=== PATIENT | male | born 1970 | race African-American/Black ===

== ENCOUNTER 2018-07-02 10:09 | Inpatient (IN) | payer OTHER ==
[2018-07-02 11:37] VITALS: BMI 24.5
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
[2018-07-02] MEDS ORDERED: ALBUTEROL SO4 8 GM HFA INHALER IH PRN (13:47)
[2018-07-02] MEDS ORDERED: MAGNESIUM HYDROX 2400MG/30ML ORAL SUSPENSION 30 ML CUP PO PRN (13:49)
[2018-07-02] MEDS ORDERED: P-EPHED 60MG/TRIPROLIDI 2.5MG TABLET PO PRN (13:49)
[2018-07-02] MEDS ORDERED: MAGNESIUM CITRATE 300 ML BOTTLE PO PRN (13:49)
[2018-07-02] MEDS ORDERED: MENTHOL/PHENOL 1 EACH UD MM PRN (13:49)
[2018-07-02] MEDS ORDERED: LOPERAMIDE HCL 2 MG CAPSULE PO PRN (13:49)
[2018-07-02] MEDS ORDERED: NICOTINE POLACRILEX 2 MG GUM BC PRN (13:49)
[2018-07-02] MEDS ORDERED: guaiFENesin/D-METHORPHAN HB 10 ML UNIT-DOSE CUPS PO PRN (13:49)
[2018-07-02] MEDS ORDERED: MAG HYDROX/AL HYDROX/SIMETH 30 ML UNIT-DOSE CUP PO PRN (13:49)
[2018-07-02] MEDS ORDERED: ACETAMINOPHEN 325 MG TABLET (FP) PO PRN (13:49)
--- NOTE | 2018-07-02 13:59 | PN ---
S Progress Note Note: Pt's suboxone ordered to start tomorrow because pt had one 8mg film prior to arrival and had another during assessment, states he does not take/need all three films sometimes. He was educated to let the nurses know if he needs more for tonight. HCTZ also ordered for tomorrow because pt's BP normal, will treat BP/symptoms if it arises prior to pt's next scheduled dose.
[2018-07-02] MEDS: PHENYTOIN NA EXTENDED 100 MG CAPSULE (FP) PO SCH ×2 (15:49→22:12)
[2018-07-02] MEDS: chlordiazePOXIDE HCL 25 MG CAPSULE PO PRN (15:49)
[2018-07-02] MEDS: NICOTINE 14 MG/24 HOURS TOPICAL PATCH TD SCH (15:54)
[2018-07-02] MEDS: chlordiazePOXIDE HCL 25 MG CAPSULE PO SCH ×2 (16:53→22:11)
[2018-07-02] MEDS ORDERED: MELATONIN 5 MG TABLETS PO PRN (22:00)
[2018-07-02] MEDS: THIAMINE HCL 100 MG TABLET (FP) PO SCH (22:11)
[2018-07-02] MEDS: IBUPROFEN 400 MG TABLET (FP) PO PRN (22:12)
[2018-07-03 01:51] LABS: URINE APPEARANCE CLEAR; URINE BILIRUBIN NEGATIVE (<2.0 mg/dL); URINE COLOR YELLOW; URINE GLUCOSE (UA) NEGATIVE (NEGATIVE); URINE KETONE NEGATIVE (NEGATIVE); URINE LEUK ESTERASE NEGATIVE (NEGATIVE); URINE NITRITE NEGATIVE (NEGATIVE); URINE PROTEIN NEGATIVE (NEGATIVE); URINE UROBILINOGEN NEGATIVE mg/dL (0.2-1.0)
[2018-07-03] MEDS: chlordiazePOXIDE HCL 25 MG CAPSULE PO SCH ×5 (05:51→22:51)
[2018-07-03] MEDS: PHENYTOIN NA EXTENDED 100 MG CAPSULE (FP) PO SCH ×3 (06:24→22:33)
[2018-07-03] MEDS: chlordiazePOXIDE HCL 25 MG CAPSULE PO PRN (06:24)
[2018-07-03] MEDS: IBUPROFEN 400 MG TABLET (FP) PO PRN (06:26)
[2018-07-03] MEDS ORDERED: BUPRENORPHINE/NALOXONE 8 MG/2 MG FILM PACKET SL SCH ×3 (06:45→10:00)
[2018-07-03] MEDS ORDERED: BUPRENORPHINE/NALOXONE 8 MG/2 MG FILM PACKET SL ONE (10:00)
[2018-07-03] MEDS: HYDROCHLOROTHIAZIDE 25 MG TABLET (FP) PO SCH (10:18)
[2018-07-03] MEDS: NICOTINE 14 MG/24 HOURS TOPICAL PATCH TD SCH (10:18)
[2018-07-03] MEDS: PRENATAL VITAMINS W/ FOLIC ACID TABLET (FP) PO SCH (10:18)
--- NOTE | 2018-07-03 10:38 | EKG ---
Test Reason : Blood Pressure : / mmHG Vent. Rate : 074 BPM Atrial Rate : 074 BPM P-R Int : 138 ms QRS Dur : 074 ms QT Int : 402 ms P-R-T Axes : 062 070 046 degrees QTc Int : 446 ms NORMAL SINUS RHYTHM MINIMAL VOLTAGE CRITERIA FOR LVH, MAY BE NORMAL VARIANT BORDERLINE ECG NO PREVIOUS ECGS AVAILABLE Confirmed by LAMBERTO ARANGO MD ([id number]) on 07/03/2018 10:38:04 AM Referred By: Tasha Mcqueen Confirmed By:LAMBERTO ARANGO MD
[2018-07-03 10:43] LABS: HEMOGLOBIN 14.1 GM/dL (11.7-16.9); MCH 32.4 pg (25.7-33.7); MCHC 34.3 g/dl (32.0-35.9); MEAN CELL VOLUME 94.4 fl (80-96); MEAN PLT VOLUME 8.1 fl (7.5-11.1); PLATELET COUNT 360 K/MM3 (134-434); RBC 4.34 M/mm3 (4.00-5.60); RDW 14.4 % (11.9-15.9); WHITE BLOOD COUNT 8.1 K/mm3 (4.0-10.0)
[2018-07-03 11:01] LABS: ALBUMIN 3.2 g/dl (3.4-5.0); ALK PHOS 102 U/L (45-117); ANION GAP 8 MMOL/L (8-16); BILIRUBIN,TOTAL 0.4 mg/dL (0.2-1); BLOOD UREA NITROGEN 16 mg/dL (7-18); CALCIUM 8.9 mg/dL (8.5-10.1); CHLORIDE 106 mmol/L (98-107); CO2 27 mmol/L (21-32); CREATININE 0.8 mg/dL (0.55-1.3); GLUCOSE,RANDOM 86 mg/dL (74-106); POTASSIUM 4.2 mmol/L (3.5-5.1); SGOT/AST 18 U/L (15-37); SGPT/ALT 31 U/L (13-61); SODIUM 142 mmol/L (136-145); TOT PROT 6.9 g/dl (6.4-8.2)
[2018-07-03] MEDS: BUPRENORPHINE/NALOXONE 8 MG/2 MG FILM PACKET SL SCH ×2 (13:07→22:35)
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
[2018-07-03] MEDS: THIAMINE HCL 100 MG TABLET (FP) PO SCH (22:34)
[2018-07-04] MEDS: chlordiazePOXIDE HCL 25 MG CAPSULE PO SCH ×2 (05:53→11:30)
[2018-07-04] MEDS: BUPRENORPHINE/NALOXONE 8 MG/2 MG FILM PACKET SL SCH (07:17)
[2018-07-04] MEDS: PHENYTOIN NA EXTENDED 100 MG CAPSULE (FP) PO SCH (07:18)
[2018-07-04] MEDS: IBUPROFEN 400 MG TABLET (FP) PO PRN (07:18)
[2018-07-04 09:26] VITALS: BP 123/80; PULSE 76; TEMP 97.1
[2018-07-04] MEDS: PRENATAL VITAMINS W/ FOLIC ACID TABLET (FP) PO SCH (11:30)
[2018-07-04] MEDS: HYDROCHLOROTHIAZIDE 25 MG TABLET (FP) PO SCH (11:30)
[2018-07-04] MEDS: NICOTINE 14 MG/24 HOURS TOPICAL PATCH TD SCH (11:30)
--- NOTE | 2018-07-04 11:48 | DS ---
[facility] Detox Discharge Summary Admission Date: 07/02/18 Discharge Date: 07/04/18 - History Present History: Alcohol Dependence, Cocaine Dependence, Opioid Dependence, MMTP Additional Comments: Patient was reported having suboxone on him and sharing it with another patient. As per his male peer, the patient told him that he has suboxone and gave it to another male patient. Patient was searched by security and was found with 2 sublingual suboxone film in which he attempted to grab it from security stating he wants to use it by putting it in his mouth but magazine writer and security staff was able to convince patient to give it to security in which he did. As per patient, he hid the suboxone by taping it to his leg upon admission then he changed his story and said that he hid it in his pocket around the waist of his track suit bottom inside of the string hole. Patient was administratively discharged due to smuggling illicit drug on unit and sharing it with his peer. Patient is A/A/Ox3, in nad, ambulatory with cane while on unit. After patient was told that he will be administratively discharged, he started walking without the cane and his gait was steady. Patient instructed to call 911 if any withdrawal symptoms or feeling sick and to see his PCP within 3 days. Pertinent Past History: Alcohol dependence Opioid dependence on agonist Asthma Cocaine dependence HTN Seizure disorder Depression Nicotine dependence - Physical Exam Results Vital Signs: Vital Signs Temperature 97.1 F L 07/04/18 09:25 Pulse Rate 76 07/04/18 09:25 Respiratory Rate 18 07/04/18 09:25 Blood Pressure 123/80 07/04/18 09:25 O2 Sat by Pulse Oximetry (%) Pertinent Admission Physical Exam Findings: Withdrawal symptoms Laboratory Tests 07/02/18 07/03/18 07/03/18 23:00 07:40 07:40 WBC 8.1 RBC 4.34 Hgb 14.1 Hct 41.0 MCV 94.4 MCH 32.4 MCHC 34.3 RDW 14.4 Plt Count 360 D MPV 8.1 Sodium 142 Potassium 4.2 Chloride 106 Carbon Dioxide 27 Anion Gap 8 BUN 16 Creatinine 0.8 Creat Clearance w eGFR > 60 Random Glucose 86 Calcium 8.9 Total Bilirubin 0.4 AST 18 ALT 31 Alkaline Phosphatase 102 Total Protein 6.9 Albumin 3.2 L Urine Color Yellow Urine Appearance Clear Urine pH 6.0 Ur Specific [place] 1.018 Urine Protein Negative Urine Glucose (UA) Negative Urine Ketones Negative Urine Blood Negative Urine Nitrite Negative Urine Bilirubin Negative Urine Urobilinogen Negative Ur Leukocyte Esterase Negative RPR Titer 07/03/18 07:40 WBC RBC Hgb Hct MCV MCH MCHC RDW Plt Count MPV Sodium Potassium Chloride Carbon Dioxide Anion Gap BUN Creatinine Creat Clearance w eGFR Random Glucose Calcium Total Bilirubin AST ALT Alkaline Phosphatase Total Protein Albumin Urine Color Urine Appearance Urine pH Ur Specific [place] Urine Protein Urine Glucose (UA) Urine Ketones Urine Blood Urine Nitrite Urine Bilirubin Urine Urobilinogen Ur Leukocyte Esterase RPR Titer Nonreactive Labs reviewed - Medication Discharge Medications: Ambulatory Orders Albuterol Sulfate Inhaler - [Ventolin Hfa Inhaler -] 2 inh PO Q4H PRN 12/01/15 Hydrochlorothiazide [Hctz -] 25 mg PO DAILY 12/01/15 Phenytoin Na Extended [Dilantin -] 100 mg PO TID 12/01/15 Buprenorphine/Naloxone [Suboxone 8Mg/2Mg Sl Film -] 3 each SL DAILY 07/02/18 - Diagnosis (1) Seizure Current Visit: Yes Status: Acute (2) Depression Current Visit: Yes Status: Chronic (3) Nicotine dependence Current Visit: Yes Status: Chronic (4) Encounter for monitoring Suboxone maintenance therapy Current Visit: Yes Status: Acute (5) Uncomplicated alcohol dependence Current Visit: Yes Status: Acute (6) Asthma Current Visit: Yes Status: Chronic (7) Cocaine dependence Current Visit: Yes Status: Chronic Qualifiers: Substance use status: uncomplicated Qualified Code(s): F14.20 - Cocaine dependence, uncomplicated (8) HTN (hypertension) Current Visit: Yes Status: Chronic - AMA Did Patient Leave Against Medical Advice: No (Patient administratively discharged after smuggling suboxone on unit)
[2018-07-04] MEDS ORDERED: chlordiazePOXIDE 5 MG CAPSULE PO SCH (17:00)
[2018-07-05] MEDS ORDERED: chlordiazePOXIDE HCL 10 MG CAPSULE PO SCH (17:00)
== END 2018-07-04 09:29 | disposition left against medical advice (07) | DRG 773 ==
LOC: YASAS 10:09 → Y3N 12:13
PROC: HZ2ZZZZ Detoxification Services for Substance Abuse Treatment (ICD-10-PCS; principal; 2018-07-02)
DX: F10.20 Alcohol dependence, uncomplicated (principal); F14.20 Cocaine dependence, uncomplicated; F11.20 Opioid dependence, uncomplicated; F17.210 Nicotine dependence, cigarettes, uncomplicated; F32.9 Major depressive disorder, single episode, unspecified; R56.1 Post traumatic seizures; I10 Essential (primary) hypertension; J45.909 Unspecified asthma, uncomplicated; R26.89 Other abnormalities of gait and mobility; Z99.89 Dependence on other enabling machines and devices; Z51.81 Encounter for therapeutic drug level monitoring; F91.8 Other conduct disorders; Z91.19 Patient's noncompliance with other medical treatment and regimen
CPT/HCPCS: 36415; 80053; 81003; 85027; 86593; 93005; 93010

== ENCOUNTER 2024-08-04 12:58 | Inpatient (IN) | payer OTHER ==
[2024-08-04 13:53] VITALS: BMI 20.9
[2024-08-04] MEDS ORDERED: NALOXONE (NARCAN) HCL 4 MG/0.1 ML SPRAY NS PRN (14:27)
[2024-08-04] MEDS ORDERED: NICOTINE POLACRILEX 4 MG GUM BUC PRN (14:27)
[2024-08-04] MEDS ORDERED: guaiFENesin 600 MG TABLET.ER (FP) PO PRN (14:27)
[2024-08-04] MEDS ORDERED: LOPERAMIDE HCL 2 MG CAPSULE PO PRN (14:27)
[2024-08-04] MEDS ORDERED: BENZONATATE 200 MG CAPSULE PO PRN (14:27)
[2024-08-04] MEDS ORDERED: POLYETHYLENE GLYCOL (HEALTHYLAX) 3350 17 GM PACKET PO PRN (14:27)
[2024-08-04] MEDS ORDERED: IBUPROFEN 400 MG TABLET (FP) PO PRN (14:27)
[2024-08-04] MEDS ORDERED: NICOTINE POLACRILEX 4 MG LOZENGE BC PRN (14:27)
[2024-08-04] MEDS ORDERED: IBUPROFEN 600 MG TABLET (FP) PO PRN (14:27)
[2024-08-04] MEDS ORDERED: MAGNESIUM HYDROX 2400MG/30ML ORAL SUSPENSION 30 ML CUP PO PRN (14:27)
[2024-08-04] MEDS ORDERED: BENZOCAINE/MENTHOL (CHLORASEPTIC ) LOZENGE MM PRN (14:27)
[2024-08-04] MEDS ORDERED: BISMUTH SUBSALICYLATE 524 MG/30 ML PO PRN (14:27)
[2024-08-04] MEDS ORDERED: DICYCLOMINE HCL 10 MG CAPSULE PO PRN (14:27)
[2024-08-04] MEDS ORDERED: ONDANSETRON *ODT* 4 MG TABLET SL PRN (14:27)
[2024-08-04] MEDS ORDERED: ACETAMINOPHEN 325 MG TABLET (FP) PO PRN (14:27)
[2024-08-04] MEDS ORDERED: MAG HYDROX/AL HYDROX/SIMETH 30 ML UNIT-DOSE CUP PO PRN (14:27)
[2024-08-04] MEDS ORDERED: ALBUTEROL SO4 HFA INHALER IH PRN (14:34)
[2024-08-04] MEDS ORDERED: HYDROCORTISONE 1% TOPICAL OINT 30 GM TUBE TP PRN (14:39)
[2024-08-04] MEDS ORDERED: methaDONE HCL 10 MG TABLET (FOR DETOX USE ONLY) ONE (14:54)
[2024-08-04] MEDS ORDERED: hydrOXYzine PAMOATE 25 MG CAPSULE (FP) PO ONE (14:54)
[2024-08-04] MEDS: methaDONE HCL 10 MG TABLET (FOR DETOX USE ONLY) PO ONE (14:55)
[2024-08-04] MEDS: hydrOXYzine PAMOATE 25 MG CAPSULE (FP) PO SCH (14:56)
[2024-08-04] MEDS: cloNIDine HCL 0.1 MG TABLET PO SCH (18:08)
[2024-08-04] MEDS: BUPRENORPHINE/NALOXONE 0.5 MG/0.125 MG FILM SL ONE (22:47)
[2024-08-04] MEDS: MELATONIN 5 MG TABLETS PO SCH (22:48)
[2024-08-04] MEDS: PHENYTOIN NA EXTENDED 100 MG CAPSULE (FP) PO SCH (22:48)
[2024-08-04] MEDS: THIAMINE 100 MG TABLET PO SCH (22:48)
[2024-08-04] MEDS: BACITRACIN ZINC 15 GM TUBE TOPICAL OINTMENT TP SCH (22:59)
[2024-08-05 09:05] LABS: HEMATOCRIT 35.1 % (35.4-49); HEMOGLOBIN 11.3 GM/dL (11.7-16.9); MCH 28.1 pg (25.7-33.7); MCHC 32.2 g/dl (32.0-35.9); MEAN CELL VOLUME 87.2 fl (80-96); MEAN PLT VOLUME 7.9 fl (7.5-11.1); PLATELET COUNT 280 10^3/uL (134-434); RBC 4.02 M/mm3 (4.00-5.60); RDW 16.9 % (11.9-15.9)
[2024-08-05 09:06] LABS: CHLORIDE 108 mmol/L (98-107); POTASSIUM 4.3 mmol/L (3.5-5.1); SODIUM 141 mmol/L (136-145)
[2024-08-05 09:15] LABS: ALBUMIN 2.7 g/dl (3.4-5.0); ANION GAP 6 mmol/L (4-13); BLOOD UREA NITROGEN 23.4 mg/dL (7-18); CALCIUM 9.2 mg/dL (8.5-10.1); CO2 27 mmol/L (21-32)
[2024-08-05 09:16] LABS: GLUCOSE,RANDOM 107 mg/dL (74-106)
[2024-08-05 09:18] LABS: SGOT/AST 20 U/L (15-37); SGPT/ALT 23 U/L (13-61)
[2024-08-05 09:19] LABS: CREATININE 0.9 mg/dL (0.55-1.3)
[2024-08-05 09:20] LABS: BILIRUBIN,TOTAL 0.2 mg/dL (0.2-1); TOT PROT 6.1 g/dl (6.4-8.2)
[2024-08-05 09:21] LABS: ALK PHOS 73 U/L (45-117)
[2024-08-05] MEDS: METHOCARBAMOL 500 MG TABLET PO PRN (09:58)
[2024-08-05] MEDS: PRENATAL VITAMINS W/ FOLIC ACID TABLET (FP) PO SCH (09:59)
[2024-08-05] MEDS: BUPRENORPHINE/NALOXONE 0.5 MG/0.125 MG FILM SL SCH (09:59)
[2024-08-05] MEDS: FLU VACCINE (FLULAVAL) PF 45 MCG/0.5 ML SYRINGE 2024-2025 IM ONE (11:36)
[2024-08-06] MEDS: BUPRENORPHINE/NALOXONE 2 MG/0.5 MG FILM PACKET SL SCH (09:52)
[2024-08-06] MEDS: methaDONE HCL 10 MG TABLET (FOR DETOX USE ONLY) PO ONE (09:52)
[2024-08-06] MEDS: NICOTINE 21 MG/24 HOURS TOPICAL PATCH TD PRN (10:57)
[2024-08-06] MEDS: PERMETHRIN 5% TOPICAL CREAM 60 GM TUBE TP ONE (11:48)
[2024-08-06 17:13] VITALS: TEMP 97.7
[2024-08-07 05:56] VITALS: RESP 16
[2024-08-07 08:54] VITALS: BP 133/81; PULSE 64
[2024-08-07] MEDS: PERMETHRIN 5% TOPICAL CREAM 60 GM TUBE TP ONE (09:48)
[2024-08-07] MEDS: BUPRENORPHINE/NALOXONE 4 MG/1 MG FILM PACKET SL SCH (09:48)
[2024-08-08] MEDS ORDERED: BUPRENORPHINE/NALOXONE 8 MG/2 MG FILM PACKET SL SCH (10:00)
[2024-08-08] MEDS ORDERED: methaDONE HCL 10 MG TABLET (FOR DETOX USE ONLY) PO ONE (10:00)
[2024-08-09] MEDS ORDERED: BUPRENORPHINE/NALOXONE 8 MG/2 MG FILM PACKET SL SCH (10:00)
== END 2024-08-07 09:40 | disposition left against medical advice (07) | DRG 770 ==
LOC: YASAS 12:58 → Y6N 15:05
PROVIDERS: ADMIT Neuromusculoskeletal Medicine & OMM; ATTEND Surgery
PROC: HZ2ZZZZ Detoxification Services for Substance Abuse Treatment (ICD-10-PCS; principal; 2024-08-04)
DX: F11.23 Opioid dependence with withdrawal (principal); F14.20 Cocaine dependence, uncomplicated; F17.210 Nicotine dependence, cigarettes, uncomplicated; F32.A Depression, unspecified; M17.11 Unilateral primary osteoarthritis, right knee; R76.8 Other specified abnormal immunological findings in serum; Z86.69 Personal history of other diseases of the nervous system and sense organs
CPT/HCPCS: 36415; 80053; 80305; 80307; 85027; 86593; 86780; 86803; 93005; 93010